=== PATIENT | male | born 1935 | race Caucasian/White ===

== ENCOUNTER 2021-08-11 15:02 | Inpatient (IN) | payer MEDICARE, BC ==
[~2021-08-11] VITALS: Ht 175.3 cm; Wt 88.0 kg
--- NOTE | 2021-08-11 15:44 | NUR ---
Patient arrived on unit via EMS. Patient is alert and oriented x 4 with no signs of distress or discomfort. Admission process completed. Medication reconciled. Pictures taken of patient's bruises and surgical site. No IV site for patient. Will endorse information to PM nurse.
[2021-08-11] MEDS ORDERED: ACET-2154 PO (15:58)
[2021-08-11] MEDS ORDERED: BISA10SU61 RC (15:58)
[2021-08-11] MEDS ORDERED: CYCL10TA9 PO (15:58)
[2021-08-11] MEDS ORDERED: AMIO100T4 PO (15:58)
[2021-08-11] MEDS ORDERED: ATOR40TA PO (15:58)
[2021-08-11] MEDS ORDERED: DOCU-141 PO (15:58)
[2021-08-11] MEDS ORDERED: HYDR-4209 PO (15:58)
[2021-08-11] MEDS ORDERED: PANT40TA2 PO (16:02)
[2021-08-11] MEDS ORDERED: TAMS-3 PO (16:02)
[2021-08-11] MEDS ORDERED: ONDA4TAB5 PO (16:02)
[2021-08-11] MEDS ORDERED: SENN-261 PO (16:02)
[2021-08-11 16:24] VITALS: BP 117/59
[2021-08-11] MEDS ORDERED: ACETAMINOPHEN 325 MG TABLET-SA PATIENTS-PAIN ONLY PO PRN (16:30)
[2021-08-11] MEDS ORDERED: BISACODYL 10 MG SUPP.RECT RC PRN (16:30)
[2021-08-11] MEDS ORDERED: ONDANSETRON HCL 4 MG TABLET PO PRN (16:30)
[2021-08-11] MEDS ORDERED: SENNOSIDES 1 TABLET PO PRN (16:30)
[2021-08-11] MEDS: DOCUSATE SODIUM 100 MG CAPSULE PO SCH (16:48)
--- NOTE | 2021-08-11 18:45 | NUR ---
Patient tolerated care well upon admission. Patient able to go to restroom with stand by assistance. Admission process completed. Bed left in lowest position with call light within reach. Comfort measures provided. Will endorse information to PM nurse.
[2021-08-11 20:00] VITALS: BP 123/58
[2021-08-11] MEDS: ATORVASTATIN 40 MG TABLET PO SCH (20:17)
[2021-08-11] MEDS: TAMSULOSIN HCL 0.4 MG CAP.SR.24H PO SCH (20:17)
[2021-08-11] MEDS ORDERED: AMIODARONE HCL 200 MG TABLET PO SCH (21:00)
[2021-08-12 04:49] VITALS: BP 133/57
[2021-08-12] MEDS: PANTOPRAZOLE SODIUM 40 MG TABLET.DR PO SCH (06:06)
[2021-08-12 07:46] VITALS: BP 125/54
[2021-08-12] MEDS: OXYCODONE HCL 5 MG TABLET PO SCH ×2 (08:18→13:52)
[2021-08-12] MEDS: DOCUSATE SODIUM 100 MG CAPSULE PO SCH ×2 (08:18→17:15)
[2021-08-12] MEDS: AMIODARONE HCL 200 MG TABLET PO SCH (08:22)
[2021-08-12 16:00] VITALS: BP 112/70
--- NOTE | 2021-08-12 17:59 | NUR ---
Patient remain AAOX2-3 with periods of confusion re oriented as need it able to go to restroom with FWW assistance. UP in W/C with PT Medicated for pain as ordered.Surgical site at mid back with dressing in place intact.safety measures in place Bed left in lowest position with call light within reach. Comfort measures provided.
[2021-08-12 20:18] VITALS: BP 111/57
[2021-08-12] MEDS: ATORVASTATIN 40 MG TABLET PO SCH (20:43)
[2021-08-12] MEDS: TAMSULOSIN HCL 0.4 MG CAP.SR.24H PO SCH (20:43)
[2021-08-13 05:17] VITALS: BP 144/66
[2021-08-13] MEDS: PANTOPRAZOLE SODIUM 40 MG TABLET.DR PO SCH (06:12)
[2021-08-13 08:09] VITALS: BP 164/82
[2021-08-13] MEDS: DOCUSATE SODIUM 100 MG CAPSULE PO SCH ×2 (08:17→16:58)
[2021-08-13] MEDS: OXYCODONE HCL 5 MG TABLET PO SCH ×2 (08:17→13:08)
[2021-08-13] MEDS: AMIODARONE HCL 200 MG TABLET PO SCH (08:17)
[2021-08-13 10:00] VITALS: BP 151/79
[2021-08-13 15:14] VITALS: BP 137/55
--- NOTE | 2021-08-13 18:14 | NUR ---
Patient remain AAOX3-4 respirations even and unlabored at room air ,with periods of forgetfulness re oriented as need it, able to go to restroom with FWW assistance one person assist. UP in W/C with PT Medicated for pain as ordered.Surgical site at mid back with dressing in place intact.safety measures in place Bed left in lowest position with call light within reach. Comfort measures provided.
[2021-08-13 20:58] VITALS: BP 123/67
[2021-08-13] MEDS: TAMSULOSIN HCL 0.4 MG CAP.SR.24H PO SCH (21:26)
[2021-08-13] MEDS: HYDROCODONE/APAP 10-325 MG TABLET PO PRN (21:26)
[2021-08-13] MEDS: ATORVASTATIN 40 MG TABLET PO SCH (21:26)
--- NOTE | 2021-08-14 04:30 | NUR ---
Pt Slept throughout the night.Respirations even and unlabored at room air. No distress noted. Able to make needs known . Medicated for pain with [place] x 1 Meds effective. Able to ambulate with FWW. Safety measures maintained. Will continue to monitor for Comfort and safety
[2021-08-14 04:41] VITALS: BP 128/63
[2021-08-14] MEDS: PANTOPRAZOLE SODIUM 40 MG TABLET.DR PO SCH (06:56)
[2021-08-14 07:35] VITALS: BP 148/65
--- NOTE | 2021-08-14 09:00 | NUR ---
at bedside and complaining that patient went to the bathroom without incident and no one at bedside. Patient stated that he could not wait for nurse. Assisted to bed. Eating breakfast.
[2021-08-14] MEDS: DOCUSATE SODIUM 100 MG CAPSULE PO SCH ×2 (09:31→16:15)
[2021-08-14] MEDS: OXYCODONE HCL 5 MG TABLET PO SCH ×2 (09:31→15:10)
[2021-08-14] MEDS: AMIODARONE HCL 200 MG TABLET PO SCH (09:32)
--- NOTE | 2021-08-14 13:10 | NUR ---
left for home. Patient very confused and wondering in halls, looking for . Instructed that she left for the day. Assisted back to bed repeatedly. Confusion remains.
--- NOTE | 2021-08-14 14:27 | NUR ---
INDIVIDUALIZED PLAN OF CARE
[2021-08-14 14:59] VITALS: BP 113/77
[2021-08-14] MEDS: CYCLOBENZAPRINE HCL 10 MG TABLET PO PRN (15:10)
[2021-08-14] MEDS: HYDROCODONE/APAP 10-325 MG TABLET PO PRN ×2 (16:16→21:38)
--- NOTE | 2021-08-14 16:45 | NUR ---
Eating dinner. called repeatedly all pm, asking to speak to nurse. After speaking to her 3 times, instructed that nurse is spending as much time as possible at bedside for saftey, and is unable to spend more time on telephone with her.
--- NOTE | 2021-08-14 17:00 | NUR ---
at bedside. States patient fell. Instructed that Dean has not fallen today. States that someone told her, and she will not divulge whom. All staff members denied telling anything negative about the patient.
--- NOTE | 2021-08-14 19:30 | NUR ---
Receive pt awake, alert and oriented x 3. Pt in no acute distress. Safety and comfort provided. Bed alarm on. Will continue to monitor. Addendum: 08/15/21 at 0435 by MALIA AMOS RN wrong pt. should be for pt 305
--- NOTE | 2021-08-14 19:35 | NUR ---
Receive pt awake, alert and oriented x 3. Pt in no acute distress. Safety and comfort provided. Bed alarm on. Will continue to monitor.
[2021-08-14 20:39] VITALS: BP 129/64
[2021-08-14] MEDS: ATORVASTATIN 40 MG TABLET PO SCH (20:52)
[2021-08-14] MEDS: TAMSULOSIN HCL 0.4 MG CAP.SR.24H PO SCH (20:52)
[2021-08-14] MEDS: ACETAMINOPHEN 325 MG TABLET PO PRN (20:54)
--- NOTE | 2021-08-14 22:30 | NUR ---
At Tylenol 650 mg prn given to pt for pain.Pt tolerated it well. Pt given [place] 10-325 mg at 2137H . After 30 minutes pt stated it felt better. Pt tolerated it well. Will continue to monitor. Addendum: 08/15/21 at 0435 by MALIA AMOS RN wrong pt. should be for pt 305
--- NOTE | 2021-08-14 23:00 | NUR ---
At 2053H Tylenol 650 mg prn given to pt for pain.Pt tolerated it well. Pt given [place] 10-325 mg at 2137H . After 30 minutes pt stated it felt better. Pt tolerated it well. Will continue to monitor.
[2021-08-15 04:20] VITALS: BP 130/68
[2021-08-15] MEDS: PANTOPRAZOLE SODIUM 40 MG TABLET.DR PO SCH (06:15)
--- NOTE | 2021-08-15 06:23 | NUR ---
Pt slept intermittently. Pt in no acute distress. Pt always trying to get out of the bed. Needs reorientation. Safety and comfort provided. Will endorse to incoming nurse for continuity of care.
[2021-08-15 08:00] VITALS: BP 137/66
[2021-08-15] MEDS: DOCUSATE SODIUM 100 MG CAPSULE PO SCH ×2 (08:51→16:26)
[2021-08-15] MEDS: AMIODARONE HCL 200 MG TABLET PO SCH (08:51)
[2021-08-15] MEDS: OXYCODONE HCL 5 MG TABLET PO SCH ×2 (09:29→13:27)
--- NOTE | 2021-08-15 17:21 | NUR ---
Med. Surg: Nursing Notes: Patient is awake and responding to his name, compliant with his medications, able to ambulate with fww and physical therapist and wearing a brace around his back for back support, A/Ox3, needs assistance with ADL's, per patient's - he is getting better, cooperative with nursing care, following staff directions, asking for assistance when needed, on fall precautions, continue to monitor for safety, continue with treatment plan.
[2021-08-15] MEDS: ATORVASTATIN 40 MG TABLET PO SCH (20:18)
[2021-08-15] MEDS: TAMSULOSIN HCL 0.4 MG CAP.SR.24H PO SCH (20:18)
[2021-08-15] MEDS: ACETAMINOPHEN 325 MG TABLET PO PRN (20:18)
[2021-08-15 20:45] VITALS: BP 110/62
[2021-08-16 04:31] VITALS: BP 130/70
[2021-08-16] MEDS: PANTOPRAZOLE SODIUM 40 MG TABLET.DR PO SCH (05:59)
--- NOTE | 2021-08-16 06:40 | NUR ---
Last BM noted 08/11/2021, Dulcolax suppository TX given as needed and as ordered.Instructed patient to increase oral fluid intake as tolerated unless its contraindicated, increase mobility activities as tolerated. Patient verbalized understanding.
[2021-08-16 08:08] VITALS: BP 143/60
[2021-08-16] MEDS: OXYCODONE HCL 5 MG TABLET PO SCH ×2 (08:52→13:14)
[2021-08-16] MEDS: DOCUSATE SODIUM 100 MG CAPSULE PO SCH ×2 (08:53→16:03)
[2021-08-16] MEDS: AMIODARONE HCL 200 MG TABLET PO SCH (08:53)
[2021-08-16 16:00] VITALS: BP 112/60
--- NOTE | 2021-08-16 18:43 | NUR ---
Patient remained stable during the shift. all needs attended. no acute distress identified. will continue to monitor/endorse to the next shift for continuity of care.
[2021-08-16 20:00] VITALS: BP 116/56
[2021-08-16] MEDS: TAMSULOSIN HCL 0.4 MG CAP.SR.24H PO SCH (20:10)
[2021-08-16] MEDS: ATORVASTATIN 40 MG TABLET PO SCH (20:10)
[2021-08-17 04:00] VITALS: BP 169/73
[2021-08-17 05:22] VITALS: BP 152/82
--- NOTE | 2021-08-17 05:22 | NUR ---
BP was elevated at 0400H VS. rechecked with reading of 152/82mmHg from 169/73 mmHg. will continue to monitor.
[2021-08-17] MEDS: PANTOPRAZOLE SODIUM 40 MG TABLET.DR PO SCH (06:06)
--- NOTE | 2021-08-17 06:28 | NUR ---
Patient was noted with some confusion during the night, forgets where he is, stating he is going home. no acute distress noted, remained stable, safety measures maintained. will endorse to the next shift for continuity of care.
--- NOTE | 2021-08-17 07:30 | NUR ---
Received patient in bed awake alert and oriented times 2-3. No sign of distress noted. Safety precaution in place. Will continue to monitor.
[2021-08-17 08:00] VITALS: BP 148/68
[2021-08-17] MEDS: OXYCODONE HCL 5 MG TABLET PO SCH ×2 (08:35→13:00)
[2021-08-17] MEDS: CYCLOBENZAPRINE HCL 10 MG TABLET PO PRN (08:37)
[2021-08-17] MEDS: DOCUSATE SODIUM 100 MG CAPSULE PO SCH ×2 (08:37→17:45)
[2021-08-17] MEDS: AMIODARONE HCL 200 MG TABLET PO SCH (08:47)
--- NOTE | 2021-08-17 12:30 | NUR ---
pt noted walking in hallway towards nursing station with fww, confused. pt reoriented and returned BTB with bed alarm on. RN informed regarding assist back to bed.
[2021-08-17 16:00] VITALS: BP 144/64
[2021-08-17 20:00] VITALS: BP 111/47
[2021-08-17] MEDS: TAMSULOSIN HCL 0.4 MG CAP.SR.24H PO SCH (20:54)
[2021-08-17] MEDS: ATORVASTATIN 40 MG TABLET PO SCH (20:54)
[2021-08-18 04:00] VITALS: BP 114/66
[2021-08-18] MEDS: PANTOPRAZOLE SODIUM 40 MG TABLET.DR PO SCH (06:34)
[2021-08-18 08:00] VITALS: BP 147/72
[2021-08-18] MEDS: DOCUSATE SODIUM 100 MG CAPSULE PO SCH ×2 (08:42→16:46)
[2021-08-18] MEDS: OXYCODONE HCL 5 MG TABLET PO SCH (08:42)
[2021-08-18] MEDS: AMIODARONE HCL 200 MG TABLET PO SCH (08:42)
--- NOTE | 2021-08-18 14:33 | NUR ---
INTERDISCIPLINARY TEAM CONFERENCE
[2021-08-18 16:46] VITALS: BP 146/64
[2021-08-18 20:25] VITALS: BP 125/57
[2021-08-18] MEDS: TAMSULOSIN HCL 0.4 MG CAP.SR.24H PO SCH (20:40)
[2021-08-18] MEDS: ATORVASTATIN 40 MG TABLET PO SCH (20:40)
[2021-08-19 04:35] VITALS: BP 151/72
[2021-08-19] MEDS: PANTOPRAZOLE SODIUM 40 MG TABLET.DR PO SCH (05:56)
[2021-08-19 08:00] VITALS: BP 145/85
[2021-08-19] MEDS: OXYCODONE HCL 5 MG TABLET PO SCH ×2 (08:00→08:18)
[2021-08-19] MEDS: DOCUSATE SODIUM 100 MG CAPSULE PO SCH ×2 (08:19→17:00)
[2021-08-19] MEDS: AMIODARONE HCL 200 MG TABLET PO SCH (08:19)
[2021-08-19 15:34] VITALS: BP 109/55
--- NOTE | 2021-08-19 18:16 | NUR ---
no events noted during shift, patient is ambulatory and self care. no acute distress noted
[2021-08-19 20:00] VITALS: BP 118/57
[2021-08-19] MEDS: TAMSULOSIN HCL 0.4 MG CAP.SR.24H PO SCH (20:38)
[2021-08-19] MEDS: ATORVASTATIN 40 MG TABLET PO SCH (20:38)
[2021-08-20 04:00] VITALS: BP 139/56
[2021-08-20] MEDS: PANTOPRAZOLE SODIUM 40 MG TABLET.DR PO SCH (06:14)
--- NOTE | 2021-08-20 06:30 | NUR ---
No significant changes noted, slept intermittently throughout the night. Easily arousable for care, able to make needs known. Medicated pain x1 and noted effective. All needs attended. Call light placed within reach. Will endorse to next shift.
--- NOTE | 2021-08-20 06:32 | NUR ---
CORRECTED: No significant changes noted, slept intermittently throughout the night. Easily arousable for care, able to make needs known. Denies pain and discomfort. BRP with walker and assist to bathroom. All needs attended. Call light placed within reach. Will endorse to next shift.
[2021-08-20 07:50] VITALS: BP 143/79
[2021-08-20] MEDS: AMIODARONE HCL 200 MG TABLET PO SCH (08:00)
[2021-08-20] MEDS: DOCUSATE SODIUM 100 MG CAPSULE PO SCH ×2 (08:00→16:29)
[2021-08-20 14:51] VITALS: BP 103/58
--- NOTE | 2021-08-20 15:26 | NUR ---
patient refuses his colace, stated he is not constipated and he does not need it, he said he had two BMs today. Addendum: 08/20/21 at 1542 by GWENDOLYN GRAVES RN RN risks and benefits explained, patient verbalized understanding of it
--- NOTE | 2021-08-20 18:03 | NUR ---
no events noted during shift
[2021-08-20 20:00] VITALS: BP 112/52
[2021-08-20] MEDS: TAMSULOSIN HCL 0.4 MG CAP.SR.24H PO SCH (21:02)
[2021-08-20] MEDS: ATORVASTATIN 40 MG TABLET PO SCH (21:02)
[2021-08-21 04:00] VITALS: BP 139/65
[2021-08-21] MEDS: PANTOPRAZOLE SODIUM 40 MG TABLET.DR PO SCH (06:21)
[2021-08-21 07:43] VITALS: BP 108/59
[2021-08-21] MEDS: DOCUSATE SODIUM 100 MG CAPSULE PO SCH ×2 (09:00→17:00)
[2021-08-21] MEDS: AMIODARONE HCL 200 MG TABLET PO SCH (09:37)
[2021-08-21 15:09] VITALS: BP 120/60
[2021-08-21 20:39] VITALS: BP 116/54
[2021-08-21] MEDS: ATORVASTATIN 40 MG TABLET PO SCH (20:42)
[2021-08-21] MEDS: TAMSULOSIN HCL 0.4 MG CAP.SR.24H PO SCH (20:42)
--- NOTE | 2021-08-21 23:41 | NUR ---
AAOx3-4 Admitted for lumbar disc disease with radiculopathy. ALL needs attended. VSS. Kept comfortable.Continent of bowel and bladder. Voiding in the urinal. On eliquis for VTE. Denies any pain nor any discomfort. Fall precautions maintained. Siderails up for safety.
[2021-08-22 04:28] VITALS: BP 143/71
[2021-08-22] MEDS: PANTOPRAZOLE SODIUM 40 MG TABLET.DR PO SCH (06:07)
[2021-08-22] MEDS: DOCUSATE SODIUM 100 MG CAPSULE PO SCH ×2 (08:47→17:00)
[2021-08-22] MEDS: AMIODARONE HCL 200 MG TABLET PO SCH (08:47)
[2021-08-22 09:06] VITALS: BP 147/70
[2021-08-22] MEDS: ACETAMINOPHEN 325 MG TABLET PO PRN (09:25)
[2021-08-22 16:17] VITALS: BP 131/62
[2021-08-22 20:25] VITALS: BP 124/60
[2021-08-22] MEDS: ATORVASTATIN 40 MG TABLET PO SCH (20:45)
[2021-08-22] MEDS: TAMSULOSIN HCL 0.4 MG CAP.SR.24H PO SCH (20:46)
[2021-08-23 03:56] VITALS: BP 146/67
[2021-08-23] MEDS: PANTOPRAZOLE SODIUM 40 MG TABLET.DR PO SCH (05:47)
[2021-08-23 07:56] VITALS: BP 144/62
[2021-08-23] MEDS: DOCUSATE SODIUM 100 MG CAPSULE PO SCH (08:28)
[2021-08-23] MEDS: AMIODARONE HCL 200 MG TABLET PO SCH (08:29)
--- NOTE | 2021-08-23 13:30 | NUR ---
Discharged patient on stable condition, surgery site intact, no bleeding/infection identified. Photo taken in chart. belonging list signed, dc instructions given and signed. denies pain, no distress identified. Family member () tack picker the patient via private car.
== END 2021-08-23 13:30 | disposition home health service (06) | DRG 561 ==
PROVIDERS: ADMIT Physical Medicine & Rehabilitation Pain Medicine; ATTEND Physical Medicine & Rehabilitation Pain Medicine
DX: Z47.89 Encounter for other orthopedic aftercare (principal); M51.16 Intervertebral disc disorders with radiculopathy, lumbar region; M48.061 Spinal stenosis, lumbar region without neurogenic claudication; E78.5 Hyperlipidemia, unspecified; G47.30 Sleep apnea, unspecified; I10 Essential (primary) hypertension; I48.0 Paroxysmal atrial fibrillation; K21.9 Gastro-esophageal reflux disease without esophagitis; N40.0 Benign prostatic hyperplasia without lower urinary tract symptoms; Z79.01 Long term (current) use of anticoagulants; Z85.46 Personal history of malignant neoplasm of prostate; M19.90 Unspecified osteoarthritis, unspecified site
CPT/HCPCS: 97161; 97535-GO-CO; A4663